=== PATIENT | female | born 1955 | race Two or more races ===

== ENCOUNTER → 2024-06-17 | Outpatient (CLI) | payer MEDICARE, MEDICAID, SELFPAY ==
--- NOTE | 2024-06-17 13:20 | XR_ITS ---
Examination: Bone densitometry Date and time of exam:June 17, 2024 1400 hours INDICATIONS: Menopause age 38 Technique: Lumbar spine and hip total bone mineralization values of an calculated. Peak reference and age match control results have been displayed. Findings: Lumbar spine total bone mineralization is0.798 gm/cm2. This is 2.3 standard deviations below peak reference. This is 0.3 standard deviations below age-matched controls. Hip total bone mineralization is 0.794 gm/cm2 This is 1.2 standard deviations below peak reference. This is 0.2 standard deviations above age-matched controls Impression: There is osteopenia based on lumbar spine measurements. There is osteopenia based on hip measurements
== END | disposition home or self-care (01) ==
PROVIDERS: PCP Family Medicine; Referring Provider Physician Assistant Medical; Visit Provider Physician Assistant Medical
DX: Z13.820 Encounter for screening for osteoporosis (principal); M85.89 Other specified disorders of bone density and structure, multiple sites
CPT/HCPCS: 77080